=== PATIENT | female | born 1995 | race Hispanic/Latino ===

== ENCOUNTER 2022-05-18 17:40 | Day surgery (SDC) | payer BC ==
[2022-05-19] MEDS ORDERED: hydrALAZINE 20 MG/ML VIAL SLOW IVP PRN (00:42)
== END 2022-05-18 19:41 | disposition home or self-care (01) ==
LOC: CSHLD/OP 17:40
PROVIDERS: ATTEND Obstetrics & Gynecology
DX: O47.1 False labor at or after 37 completed weeks of gestation (principal); Z3A.37 37 weeks gestation of pregnancy; Z79.899 Other long term (current) drug therapy; Z98.890 Other specified postprocedural states
CPT/HCPCS: 99282

== ENCOUNTER 2022-05-22 08:38 | Inpatient (IN) | payer BC, OTHER ==
[~2022-05-22 08:38] MED LIST: Bupivacaine/Epinephrine 0.25% 30 ML VIAL ONE
[2022-05-22] MEDS ORDERED: Ondansetron PF 4 MG/2 ML Vial IVP PRN ×2 (08:39→13:51)
[2022-05-22] MEDS ORDERED: Lidocaine 1% (PF) 30 ML VIAL SC PRN (08:39)
[2022-05-22] MEDS ORDERED: Docusate 100 MG CAP PO PRN (08:39)
[2022-05-22] MEDS ORDERED: Diphenoxylate HCl/Atropine Tablet PO PRN ×2 (08:39)
[2022-05-22] MEDS ORDERED: Promethazine HCl 25 MG/ML VIAL IM PRN ×2 (08:39→13:51)
[2022-05-22] MEDS ORDERED: HYDROcodone/Acetaminophen 5/325 mg Tablet PO PRN ×2 (08:39)
[2022-05-22] MEDS ORDERED: Misoprostol 200 MCG TAB PR PRN (08:39)
[2022-05-22] MEDS ORDERED: Acetaminophen 500 MG TAB PO PRN (08:39)
[2022-05-22] MEDS ORDERED: Ibuprofen 800 MG TAB PO PRN (08:39)
[2022-05-22] MEDS ORDERED: Butorphanol Tartrate 1 MG/ML VIAL SLOW IVP PRN (08:39)
[2022-05-22] MEDS ORDERED: hydrALAZINE 20 MG/ML VIAL SLOW IVP PRN (08:39)
[2022-05-22] MEDS ORDERED: NS w/ Oxytocin 30 units 500 ML IV SCH ×2 (08:45)
[2022-05-22 10:00] VITALS: BMI 32.5
[2022-05-22 10:03] LABS: Hemoglobin 9.9 g/dL (12.0-15.5); Mean Corpuscular HGB CONC 31.5 g/dL (32.0-36.0); Mean Corpuscular Hemoglobin 23.6 pg (27.0-33.0); Mean Corpuscular Volume 74.9 fl (81.6-98.3); Mean Platelet Volume 9.4 fl (7.4-10.4); Platelet Count 383 10x3/uL (150-450); RBC Distribution Width 14.9 % (11.5-14.5); Red Blood Cell (RBC) Count 4.19 10x6/uL (3.90-5.03); White Blood Cell (WBC) Count 5.4 10x3/uL (3.5-10.5)
[2022-05-22 11:04] LABS: HBSAg Index 0.16 S/CO (0-0.99); HIV (1/2) Antibody/Antigen Non-Reactive (NonReactive); HIV 1/2 INDEX 0.08 S/CO (<1.00); Hep B Surf Ag Non-Reactive S/CO (NonReactive)
[2022-05-22 11:05] LABS: Syphilis Antibody Nonreactive (Nonreactive); Syphilis Antibody Index 0.02 S/CO (<1.00 Non-Reactive)
[2022-05-22] MEDS ORDERED: Fentanyl 2 mcg/Bup 0.1% Cadd 100 ML ONE (13:22)
[2022-05-22] MEDS ORDERED: Naloxone HCl 0.4 mg/ml Vial IVP PRN ×2 (13:51)
[2022-05-22] MEDS ORDERED: Lactated Ringer's 500 ML IV PRN (13:51)
[2022-05-22] MEDS ORDERED: Acetaminophen 325 MG TAB PO PRN (13:51)
[2022-05-22] MEDS ORDERED: ePHEDrine Sulfate 50 MG/10 ML VIAL SLOW IVP PRN (13:51)
[2022-05-22] MEDS ORDERED: Moisturizing Cream (Eucerin) 113 GM JAR TOP PRN (13:51)
[2022-05-22] MEDS ORDERED: diphenhydrAMINE 50 MG/ML VIAL IVP PRN (13:51)
[2022-05-22] MEDS ORDERED: Communication Order-Pharmacy FS SCH (14:00)
[2022-05-22] MEDS ORDERED: Fentanyl 2 mcg/Bupivacaine 0.1% Cassette 100 ML EPIDURAL SCH (14:00)
[2022-05-22 17:03] LABS: SARS-CoV-2 NAA Rapid Test Not Detected (NotDetected)
[2022-05-22] MEDS ORDERED: Methylergonovine 0.2 MG/ML VIAL ONE (20:00)
[2022-05-22] MEDS ORDERED: Carboprost 250 MCG/ML AMP ONE (20:00)
[2022-05-23] MEDS: Lactated Ringer's 1,000 ML IV SCH ×4 (00:08→07:28)
[2022-05-23] MEDS ORDERED: Lanolin Ointment 7 GM TUBE TOP PRN (09:41)
[2022-05-23] MEDS ORDERED: Bisacodyl 10 MG SUPP PR PRN (09:41)
[2022-05-23] MEDS ORDERED: Ondansetron PF 4 MG/2 ML Vial IVP PRN (09:41)
[2022-05-23] MEDS ORDERED: Preparation H Ointment 28 GM TUBE PR PRN (09:41)
[2022-05-23] MEDS ORDERED: HYDROcodone/Acetaminophen 5/325 mg Tablet PO PRN ×2 (09:41)
[2022-05-23] MEDS ORDERED: Zolpidem Tartrate 5 MG TAB PO PRN (09:41)
[2022-05-23] MEDS ORDERED: hydrALAZINE 20 MG/ML VIAL SLOW IVP PRN (09:41)
[2022-05-23] MEDS ORDERED: Misoprostol 200 MCG TAB VAG PRN (09:41)
[2022-05-23] MEDS ORDERED: Benzocaine-Menthol 82.5 ML CAN TOP PRN (09:41)
[2022-05-23] MEDS ORDERED: Boostrix 0.5 ML (Tdap) VIAL (>/=7 yrs of age) IM ONE (09:41)
[2022-05-23] MEDS ORDERED: diphenhydrAMINE 25 MG CAP PO PRN (09:41)
[2022-05-23] MEDS ORDERED: Milk Of Magnesia 30 ML UDCUP PO PRN (09:41)
[2022-05-23] MEDS ORDERED: NS w/ Oxytocin 30 units 500 ML IV SCH (09:45)
[2022-05-23] MEDS: Ibuprofen 800 MG TAB PO SCH ×2 (14:37→21:51)
[2022-05-23] MEDS: Ferrous Sulfate 325 MG TAB PO SCH (17:30)
[2022-05-23] MEDS: Docusate 100 MG CAP PO SCH (21:51)
[2022-05-24 04:17] LABS: Hemoglobin 8.5 g/dL (12.0-15.5); Mean Corpuscular HGB CONC 31.4 g/dL (32.0-36.0); Mean Corpuscular Hemoglobin 23.7 pg (27.0-33.0); Mean Corpuscular Volume 75.5 fl (81.6-98.3); Mean Platelet Volume 9.4 fl (7.4-10.4); Platelet Count 325 10x3/uL (150-450); RBC Distribution Width 15.3 % (11.5-14.5); Red Blood Cell (RBC) Count 3.59 10x6/uL (3.90-5.03); White Blood Cell (WBC) Count 6.4 10x3/uL (3.5-10.5)
[2022-05-24] MEDS: Ibuprofen 800 MG TAB PO SCH (05:39)
[2022-05-24 07:51] VITALS: BP 105/62; TEMP 98.3
[2022-05-24] MEDS: Ferrous Sulfate 325 MG TAB PO SCH (08:34)
[2022-05-24] MEDS: Docusate 100 MG CAP PO SCH (08:34)
[2022-05-24] MEDS ORDERED: Prenatal Vitamin 1 TAB PO SCH (09:00)
== END 2022-05-24 10:55 | disposition home or self-care (01) | DRG 807 ==
LOC: CSHLD 08:38 → CSHPP 23:05
PROVIDERS: ADMIT Obstetrics & Gynecology; ATTEND Obstetrics & Gynecology
PROC: 3E033VJ Introduction of Other Hormone into Peripheral Vein, Percutaneous Approach (ICD-10-PCS; principal; 2022-05-22)
PROC: 10E0XZZ Delivery of Products of Conception, External Approach (ICD-10-PCS; 2022-05-22)
PROC: 10907ZC Drainage of Amniotic Fluid, Therapeutic from Products of Conception, Via Natural or Artificial Opening (ICD-10-PCS; 2022-05-22)
DX: O99.02 Anemia complicating childbirth (principal); Z37.0 Single live birth; Z86.16 Personal history of COVID-19; Z20.822 Contact with and (suspected) exposure to COVID-19; Z3A.37 37 weeks gestation of pregnancy; D64.9 Anemia, unspecified
CPT/HCPCS: 36415; 51702; 85027; 86780; 86850; 86900; 86901; 87340; 87389; J2590; J7120; U0002